=== PATIENT | female | born 1970 ===

== ENCOUNTER 2018-11-18 14:15 | Inpatient (IN) | payer OTHER ==
[~2018-11-18] VITALS: Ht 170.2 cm; Wt 85.1 kg
[2018-11-18 14:48] LABS: Basophils # (auto) 0.1 uL; Basophils % (auto) 0.9 % (0.0-2.0); Eosinophils # (auto) 0.3 uL; Eosinophils % (auto) 2.7 % (0.0-7.0); Hematocrit 43.7 % (36.0-46.0); Hemoglobin 14.6 g/dL (12.2-16.2); Lymphocytes # (auto) 3.2 uL; Lymphocytes % (auto) 32.7 % (10.0-50.0); Mean Corpuscular Hemoglobin 30.3 pg (28.0-32.0); Mean Corpuscular Hgb Conc. 33.4 g/dL (32.0-36.0); Mean Corpuscular Volume 90.9 fL (80.0-100.0); Monocytes # (auto) 0.8 uL; Monocytes % (auto) 8.1 % (0.0-12.0); Neutrophils # (auto) 5.4 uL; Neutrophils % (auto) 55.6 % (37.0-80.0); Nucleated Red Blood Cells % 0.2 %; Platelet Count (auto) 248 10^3/uL (140-450); Red Blood Cells 4.81 10^6/uL (4.0-5.20); Red Cell Distribution Width 13.9 % (11.8-14.3); White Blood Cell 9.8 10^3/uL (4.4-10.8)
[2018-11-18 15:05] LABS: Calcium 8.8 mg/dL (8.5-10.1); Potassium 3.8 mmol/L (3.5-5.1)
[2018-11-18 15:11] LABS: Albumin 4.1 g/dL (3.4-5.0); BUN/Creatinine Ratio 17.4; Bilirubin, Total 0.3 mg/dL (0.2-1.0); Total Protein 7.8 g/dL (6.4-8.2)
[2018-11-18 15:52] LABS: Urine Bacteria FEW /hpf (None Seen); Urine Blood Negative /uL (Negative); Urine Specific Gravity 1.005 (1.001-1.035); Urine WBC 1 /hpf (0 - 5)
[2018-11-18] MEDS ORDERED: SODIUM CHLORIDE 0.9% 1,000 ML IVB ONE (16:01)
[2018-11-18] MEDS ORDERED: PANTOPRAZOLE 40 MG/10 ML VIAL IV STA (16:01)
[2018-11-18] MEDS ORDERED: ONDANSETRON HCL 4 MG/2 ML VIAL IV ONE (16:15)
[2018-11-18] MEDS ORDERED: MORPHINE SULFATE 4 MG/ML SYR/VIAL IV ONE (16:15)
[2018-11-18 16:27] LABS: Amylase 64 U/L (25-115); Lipase 107 U/L (73-393)
[2018-11-18] MEDS ORDERED: HYDROcodone-ACET 5/325MG TAB PO PRN (18:30)
[2018-11-18] MEDS ORDERED: DOCUSATE SOD 100 MG CAP PO PRN (18:30)
[2018-11-18] MEDS: SODIUM CHLORIDE 0.9% 1,000 ML IV SCH (18:35)
[2018-11-18 19:35] VITALS: BP 93/57
--- NOTE | 2018-11-18 19:35 | NUR ---
MS ADMIT FROM ER RECEIVED PATIENT ON GURNEY FROM ER. AT BEDSIDE. PATIENT PRIMARILY GEORGIAN SPEAKING. PATIENT RESTING COMFORTABLY WITH NO S/S OF DISTRESS OR SOB. PATIENT DENIES PAIN AT THIS TIME. PT A/O X4. PATIENT'S SKIN IS CLEAN, DRY, AND INTACT. UPDATED PATIENT ON POC, VERBALIZED UNDERSTANDING. BED LOCKED IN LOW POSITION, CALL LIGHT WITHIN REACH. WILL CONTINUE TO MONITOR PATIENT Q1HR AND PRN.
[2018-11-18 20:01] LABS: Cholesterol 185 mg/dL (< 200); Triglycerides 252 mg/dL (< 150)
[2018-11-18 20:03] LABS: HDL Cholesterol 44 mg/dL (40-59); LDL Cholesterol 100 mg/dL (< 100)
[2018-11-18 21:36] VITALS: BP 83/58
[2018-11-18] MEDS: metroNIDAZOLE 500MG/100ML 100 ML IV SCH (23:42)
[2018-11-19 04:58] VITALS: BP 93/60
[2018-11-19 05:18] LABS: Basophils # (auto) 0.1 uL; Basophils % (auto) 0.9 % (0.0-2.0); Eosinophils # (auto) 0.3 uL; Eosinophils % (auto) 4.2 % (0.0-7.0); Hematocrit 38.7 % (36.0-46.0); Hemoglobin 12.8 g/dL (12.2-16.2); Lymphocytes # (auto) 2.5 uL; Lymphocytes % (auto) 37.1 % (10.0-50.0); Mean Corpuscular Hemoglobin 30.4 pg (28.0-32.0); Mean Corpuscular Hgb Conc. 33.1 g/dL (32.0-36.0); Mean Corpuscular Volume 91.9 fL (80.0-100.0); Monocytes # (auto) 0.7 uL; Monocytes % (auto) 11.3 % (0.0-12.0); Neutrophils # (auto) 3.1 uL; Neutrophils % (auto) 46.5 % (37.0-80.0); Nucleated Red Blood Cells % 0.1 %; Platelet Count (auto) 194 10^3/uL (140-450); Red Blood Cells 4.22 10^6/uL (4.0-5.20); White Blood Cell 6.6 10^3/uL (4.4-10.8)
[2018-11-19 05:33] LABS: BUN/Creatinine Ratio 16.7; Calcium 7.9 mg/dL (8.5-10.1)
[2018-11-19] MEDS: metroNIDAZOLE 500MG/100ML 100 ML IV SCH ×3 (05:54→17:30)
[2018-11-19 08:24] VITALS: BP 98/59
[2018-11-19] MEDS: MORPHINE SULFATE 4 MG/ML SYR/VIAL IV PRN ×3 (08:37→17:31)
[2018-11-19] MEDS: SODIUM CHLORIDE 0.9% 1,000 ML IV SCH (08:37)
[2018-11-19] MEDS: ONDANSETRON HCL 4 MG/2 ML VIAL IV PRN ×3 (08:38→17:30)
[2018-11-19 12:51] VITALS: BP 98/57
[2018-11-19 15:00] LABS: Albumin 3.4 g/dL (3.4-5.0); Calcium 8.1 mg/dL (8.5-10.1); Potassium 4.2 mmol/L (3.5-5.1)
[2018-11-19 15:03] LABS: BUN/Creatinine Ratio 12.3; Bilirubin, Total 0.5 mg/dL (0.2-1.0); Total Protein 6.5 g/dL (6.4-8.2)
[2018-11-19 15:15] LABS: INR 0.99 (0.9-1.15); Partial Thromboplastin Time 28.1 sec (23.78-33.04); Prothrombin Time 10.6 sec (9.27-12.13)
[2018-11-19 17:44] VITALS: BP 80/51
--- NOTE | 2018-11-19 20:00 | NUR ---
Opening Shift Note Assumed care of patient, awakened and alert. No S/S of distress/SOB or pain. Instructed on POC and to call for assist PRN, will continue to monitor for changes Q1hr and PRN.Family at bedside.
[2018-11-19 22:00] VITALS: BP 119/58
[2018-11-20] MEDS: metroNIDAZOLE 500MG/100ML 100 ML IV SCH ×5 (00:08→23:35)
[2018-11-20 05:00] VITALS: BP 104/58
[2018-11-20] MEDS: SODIUM CHLORIDE 0.9% 1,000 ML IV SCH ×2 (05:48→11:32)
--- NOTE | 2018-11-20 07:14 | NUR ---
Report given to [place] to assume care.
--- NOTE | 2018-11-20 07:25 | NUR ---
OPENING NOTE Assumed care of patient from NOC R[place]ma. Patient awake and alert with no S/S of distress/SOB or pain. Instructed on POC and to call for assist PRN, verbalized understanding. Bed in lowest, locked position with side rails up x2 and call light within reach. Will continue to monitor for changes Q1hr and PRN.
[2018-11-20 08:22] LABS: Basophils # (auto) 0.1 uL; Basophils % (auto) 0.8 % (0.0-2.0); Calcium 7.8 mg/dL (8.5-10.1); Eosinophils # (auto) 0.2 uL; Eosinophils % (auto) 2.5 % (0.0-7.0); Hematocrit 37.2 % (36.0-46.0); Hemoglobin 12.7 g/dL (12.2-16.2); Lymphocytes % (auto) 29.1 % (10.0-50.0); Mean Corpuscular Hemoglobin 30.7 pg (28.0-32.0); Mean Corpuscular Hgb Conc. 34.1 g/dL (32.0-36.0); Mean Corpuscular Volume 90.2 fL (80.0-100.0); Monocytes # (auto) 0.6 uL; Monocytes % (auto) 9.3 % (0.0-12.0); Neutrophils # (auto) 3.9 uL; Neutrophils % (auto) 58.3 % (37.0-80.0); Platelet Count (auto) 182 10^3/uL (140-450); Potassium 3.8 mmol/L (3.5-5.1); Red Blood Cells 4.12 10^6/uL (4.0-5.20); Red Cell Distribution Width 13.9 % (11.8-14.3); White Blood Cell 6.8 10^3/uL (4.4-10.8)
[2018-11-20 08:25] LABS: Albumin 3.2 g/dL (3.4-5.0); BUN/Creatinine Ratio 13.2; Magnesium 2.1 mg/dL (1.6-2.6)
[2018-11-20 08:28] LABS: Bilirubin, Total 0.5 mg/dL (0.2-1.0); Total Protein 6.3 g/dL (6.4-8.2)
[2018-11-20 09:00] VITALS: BP 107/62
[2018-11-20] MEDS: MORPHINE SULFATE 4 MG/ML SYR/VIAL IV PRN (11:33)
[2018-11-20 13:00] VITALS: BP 101/68
[2018-11-20] MEDS ORDERED: MAGNESIUM CITRATE SOLUTION 300 ML BTL PO ONE (15:45)
[2018-11-20 16:55] VITALS: BP 98/72
--- NOTE | 2018-11-20 18:36 | NUR ---
IV REMOVAL/INSERTION Infiltrated IV DC'd with clean sterile technique, catheter fully intact. Pressure dressing applied to site. IV access obtained, via clean sterile technique by inserting 22 gauge catheter at the left hand after 2 attempts. IV secured properly. No trauma to site. Patient tolerated well.
--- NOTE | 2018-11-20 19:34 | NUR ---
CLOSING NOTE Endorsed care of patient to NOC RN, [place].
--- NOTE | 2018-11-20 19:53 | NUR ---
Opening Shift Note Assumed care of patient, awake and alert. No S/S of distress/SOB or pain. Instructed on POC and to call for assist PRN, will continue to monitor for changes Q1hr and PRN. at bedside.
[2018-11-20 21:30] VITALS: BP 99/61
[2018-11-21 05:31] VITALS: BP 98/57
[2018-11-21] MEDS: metroNIDAZOLE 500MG/100ML 100 ML IV SCH ×2 (05:34→11:54)
[2018-11-21] MEDS: SODIUM CHLORIDE 0.9% 1,000 ML IV SCH ×2 (05:34→13:22)
[2018-11-21 05:47] LABS: Basophils # (auto) 0.1 uL; Basophils % (auto) 0.7 % (0.0-2.0); Eosinophils # (auto) 0.2 uL; Eosinophils % (auto) 3.4 % (0.0-7.0); Hematocrit 39.1 % (36.0-46.0); Lymphocytes # (auto) 2.4 uL; Lymphocytes % (auto) 34.7 % (10.0-50.0); Mean Corpuscular Hemoglobin 30.4 pg (28.0-32.0); Mean Corpuscular Hgb Conc. 33.3 g/dL (32.0-36.0); Mean Corpuscular Volume 91.3 fL (80.0-100.0); Monocytes # (auto) 0.8 uL; Monocytes % (auto) 11.9 % (0.0-12.0); Neutrophils # (auto) 3.4 uL; Neutrophils % (auto) 49.3 % (37.0-80.0); Platelet Count (auto) 190 10^3/uL (140-450); Red Blood Cells 4.29 10^6/uL (4.0-5.20); Red Cell Distribution Width 13.7 % (11.8-14.3)
[2018-11-21 06:12] LABS: Albumin 3.4 g/dL (3.4-5.0); Magnesium 2.4 mg/dL (1.6-2.6); Potassium 3.9 mmol/L (3.5-5.1)
[2018-11-21 06:14] LABS: BUN/Creatinine Ratio 15.6; Bilirubin, Total 0.4 mg/dL (0.2-1.0); Total Protein 6.4 g/dL (6.4-8.2)
--- NOTE | 2018-11-21 07:26 | NUR ---
Report given to [place] to assume care.
[2018-11-21 09:00] VITALS: BP 97/64
[2018-11-21 13:00] VITALS: BP 99/58
[2018-11-21 15:47] VITALS: BP 97/54
--- NOTE | 2018-11-21 16:28 | NUR ---
DISCHARGE Discharge instructions given as ordered. Encouraged to establish and follow up with PMD as instructed. All questions and concerns addressed. Patient verbalized understanding. Medication reconciliation form completed and copy given to patient. IV removed with catheter intact and pressure dressing applied. Patient ambulated to vehicle via wheelchair with all personal belongings, accompanied by spouse. No distress noted at time of departure.
== END 2018-11-21 16:28 | disposition home or self-care (01) | DRG 446 ==
LOC: ER 14:20 → OVERFLOW 18:27 → WEST WING 19:46
PROVIDERS: ADMIT Nurse Practitioner Acute Care; ATTEND Family Medicine
DX: K80.70 Calculus of gallbladder and bile duct without cholecystitis without obstruction (principal); K59.00 Constipation, unspecified; E66.9 Obesity, unspecified; E78.5 Hyperlipidemia, unspecified; F17.210 Nicotine dependence, cigarettes, uncomplicated; Z86.73 Personal history of transient ischemic attack (TIA), and cerebral infarction without residual deficits; Z90.710 Acquired absence of both cervix and uterus; Z68.29 Body mass index [BMI] 29.0-29.9, adult
CPT/HCPCS: 36415; 74176; 76705; 78226; 80048; 80053; 80061; 81001; 82150; 83690; 83735; 85025; 85610; 85730; 94761; 96374; 96375; C9113; G0378; J2405; J3490